=== PATIENT | female | born 1985 | race African-American/Black ===

== ENCOUNTER 2017-10-17 08:45 | Emergency (ER) | payer OTHER ==
[~2017-10-17] VITALS: Ht 160 cm; Wt 77.1 kg
--- NOTE | ~2017-10-17 | EKG ---
[address] [place] [address] ELECTROCARDIOGRAM REPORT Name: RONALDO IPERRE Room #: DEP RON [place]#: [id number] Admission: 10/17/17 Attend Phys: Discharge: 10/17/17 Date of : 87 Report #: [id number] THIS REPORT FOR: //name// [facility] ED Test Date: 2017-10-17 Test Time: 09:19:19 Pat Name: RONALDO PIERRE Department: Room: Gender: F Access Service Representative: rico : 1985 Requested By: Mackenzie Elias Order Number: [id number] MD: Joseph Vail Measurements Intervals [place] Rate: 84 P: 69 [place]: 116 QRS: 63 QRSD: 89 T: 43 QT: 372 QTc: 440 Interpretive Statements Sinus arrhythmia Borderline short [place] interval No previous ECG available for comparison Electronically Signed On 10-17-2017 13:31:13 [employer] by Joseph Vail [email or web address] <ELECTRONICALLY SIGNED> By: Joseph Vail MD 10/17/17 1331 0919 09 Joseph Vail MD /RADHA
[2017-10-17 09:21] LABS: URINE BILIRUBIN NEGATIVE (Negative); URINE BLOOD TRACE (Negative); URINE CLARITY CLEAR; URINE COLOR YELLOW; URINE GLUCOSE-RANDOM* NEGATIVE (Negative); URINE KETONES NEGATIVE (Negative); URINE LEUKOCYTES NEGATIVE (Negative); URINE NITRITE NEGATIVE (Negative); URINE PROTEIN (DIPSTICK) NEGATIVE (Negative); URINE UROBILINOGEN 0.2 E.U./dl (0.2-1.0)
[2017-10-17 09:23] LABS: ABSOLUTE NEUTROPHILS 2.4 thou/uL (1.4-8.2); BASOPHILS 0.3 % (0.0-2.0); EOSINOPHILS 3.9 % (0.0-3.0); HEMATOCRIT 38.6 % (37.0-47.0); HEMOGLOBIN 13.2 gm/dL (12.0-15.0); LYMPHOCYTES 52.3 % (24.0-44.0); MCH 31.4 pg (26.0-34.0); MCHC 34.3 g/dL (28.0-37.0); MCV 91.6 fL (80.0-100.0); MONOCYTES 6.5 % (1.0-8.0); PLATELET COUNT 247 thou/uL (150-400); RBC 4.21 mil/uL (4.20-5.00); RDW 12.8 % (10.5-14.5); WBC 6.6 thou/uL (4.0-11.0)
[2017-10-17 09:29] LABS: ANION GAP 10 mmol/L (7-16); BUN 6 mg/dL (7-18); CALCIUM 9.1 mg/dL (8.5-10.1); CHLORIDE 106 mmol/L (98-107); CO2 23 mmol/L (21-32); CREATININE 0.9 mg/dL (0.6-1.0); GLUCOSE 101 mg/dL (74-106); POTASSIUM 3.4 mmol/L (3.5-5.1); SODIUM 139 mmol/L (136-145)
[2017-10-17 09:34] LABS: ALBUMIN 3.8 g/dL (3.4-5.0); DIRECT BILIRUBIN 0.2 mg/dL (<0.1-0.3); TOTAL BILIRUBIN 0.4 mg/dL (<0.1-1.0); TOTAL PROTEIN 7.8 g/dL (6.4-8.2)
[2017-10-17 09:37] LABS: TROPONIN-I < 0.04 ng/mL (<0.06)
[2017-10-17] MEDS ORDERED: IBUPROFEN 800800 MG PO (10:04)
[2017-10-17] MEDS ORDERED: PEPCID40 MG PO (10:04)
== END 2017-10-17 10:40 | disposition home or self-care (01) ==
LOC: ER 08:45
PROVIDERS: Emergency Medicine
DX: J02.8 Acute pharyngitis due to other specified organisms (principal); B97.89 Other viral agents as the cause of diseases classified elsewhere; F41.9 Anxiety disorder, unspecified; R10.13 Epigastric pain; Z88.1 Allergy status to other antibiotic agents